=== PATIENT | female | born 1960 | race Caucasian/White ===

== ENCOUNTER 2019-11-21 11:17 | Outpatient (CLI) | payer OTHER ==
--- NOTE | 2019-11-21 13:20 | RAD ---
4 VIEWS CERVICAL SPINE: Date: 11/21/2019 INDICATION: History of neck surgery. COMPARISON: Prior exam dated 08/31/2013. FINDINGS: There is an ACDF spanning C3 through C6. Instrumentation projects in the expected position. There is straightening of the normal cervical lordosis. There is moderate disc degenerative disease at C6-7. T here is moderate multilevel facet osteoarthritic change, most pronounced at C7-T1 and C6-7. Lateral m asses are symmetric. There is instrumentation involving the mandible, which is stable appearing. Lung apices are clear. IMPRESSION: 1. Interval ACDF of C3 through C6 without overt evidence of hardware complication. 2. Moderate disc degeneration at C6-7. POS: [facility]
== END 2019-11-21 11:18 | disposition home or self-care (01) ==
LOC: TBSIIMAG 11:17
PROVIDERS: ATTEND Neurological Surgery
DX: M50.123 Cervical disc disorder at C6-C7 level with radiculopathy (principal); Z98.1 Arthrodesis status
CPT/HCPCS: 72040